=== PATIENT | female | born 1975 | race Asian ===

== ENCOUNTER 2016-07-11 08:18 | Outpatient (CLI) | payer OTHER ==
[2016-07-11 09:15] LABS: PLATELET COUNT 339 K/uL (152-353)
[2016-07-11 09:28] LABS: SODIUM 137 mmol/L (136-145)
== END 2016-07-11 09:30 | disposition home or self-care (01) ==
LOC: LABW 08:18
PROVIDERS: Nurse Practitioner Family
DX: R53.83 Other fatigue (principal); E53.8 Deficiency of other specified B group vitamins; E55.9 Vitamin D deficiency, unspecified; E78.4 Other hyperlipidemia
CPT/HCPCS: 36415; 80053; 80061; 81000; 82306; 82607; 84443; 85027

== ENCOUNTER 2016-07-29 07:57 | Day surgery (SDC) | payer OTHER ==
[~2016-07-29] VITALS: Ht 30.5 cm; Wt 0.5 kg
== END 2016-07-29 15:42 | disposition home or self-care (01) ==
LOC: OR 07:57
PROC: 0FT44ZZ Resection of Gallbladder, Percutaneous Endoscopic Approach (ICD-10-PCS; principal; 2016-07-29)
DX: K80.10 Calculus of gallbladder with chronic cholecystitis without obstruction (principal)
CPT/HCPCS: J0132; J0330; J0690; J1100; J1170; J2001; J2250; J2704; J2710; J3010; J3490